=== PATIENT | male | born 1965 | race Caucasian/White ===

== ENCOUNTER 2020-08-23 11:39 | Inpatient (IN) | payer OTHER ==
[2020-08-23 13:00] LABS: Protime INR 1.4
[2020-08-23 13:03] LABS: Basophils % 0.6 % (0-1.3); Hematocrit 21.2 % (39.6-49.0); Lymphocytes % 12.6 % (15.3-44.8); RBC Red Blood Cell Count 2.95 M/uL (4.33-5.43)
[2020-08-23 13:14] LABS: ALT/SGPT 81 U/L (12-78); AST/SGOT 47 U/L (15-37); Albumin 3.2 g/dL (3.4-5.0); Alkaline Phosphatase 121 U/L (45-117); BUN Blood Urea Nitrogen 27 mg/dL (7-18); Bicarbonate 15 mmol/L (21-32); Bilirubin Direct 0.2 mg/dL (0-0.2); Bilirubin Total 0.6 mg/dL (0.2-1.0); Magnesium 2.3 mg/dL (1.8-2.4); NT PRO-BNP 23 pg/mL (<125); Potassium 5.2 mmol/L (3.5-5.1); Protein, Total 7.4 g/dL (6.4-8.2); Sodium Level 136 mmol/L (136-145); Troponin (Emerg Dept Use Only) < 0.02 ng/mL (0.0-0.045)
[2020-08-23 13:17] LABS: Glucose Level 888 mg/dL (74-106)
[2020-08-23] MEDS ORDERED: NA CHLORIDE 0.9% 250 ML ONE (13:46)
[2020-08-23 13:50] LABS: Anisocytosis 2+; Blood Morphology Comment NOTED (NOT SEEN); Hypochromasia 2+; Platelet Estimate ADEQ; White Blood Cell Scan OK (OK)
[2020-08-23] MEDS ORDERED: INSULIN -REGULAR HUMAN 50 UNIT/0.5 ML ML ONE (14:47)
[2020-08-23] MEDS ORDERED: NA CHLORIDE 0.9% 1,000 ML ONE ×2 (14:47→22:42)
--- NOTE | 2020-08-23 15:28 | EDPHYS ---
Physician Documentation [facility] Name: Corey Mendenhall Age: 55 yrs Sex: Male : 1965 Arrival Date: 08/23/2020 Time: 11:46 Bed 18 Private MD: ED Physician HPI: 08/23 15:57 This 55 yrs old Male presents to ER via Ambulatory with complaints of tw4 Shortness Of Breath, Dizziness. 15:57 The patient has shortness of breath at rest. Onset: The symptoms/episode began/occurred tw4 2 day(s) ago. Duration: The symptoms are intermittent. The patient's shortness of breath is aggravated by exertion, is alleviated by nothing. Associated signs and symptoms: Pertinent positives: nausea, vomiting. Severity of symptoms: At their worst the symptoms were moderate in the emergency department the symptoms are unchanged. The patient has not experienced similar symptoms in the past. Historical: - Allergies: 12:13 No Known Allergies; aa5 - Home Meds: 12:13 None [Active]; aa5 - PMHx: 12:13 None; aa5 - PSHx: 12:13 Appendectomy; aa5 - Immunization history:: Adult Immunizations unknown. - Social history:: Smoking status: Patient denies any tobacco usage or history of. Patient/guardian denies using alcohol. ROS: 15:57 Constitutional: Negative for fever, chills, and weight loss, Eyes: Negative for injury, tw4 pain, redness, and discharge, Cardiovascular: Negative for chest pain, palpitations, and edema, Abdomen/GI: Negative for abdominal pain, nausea, vomiting, diarrhea, and constipation, Back: Negative for injury and pain, MS/Extremity: Negative for injury and deformity, Skin: Negative for injury, rash, and discoloration, Neuro: Negative for headache, weakness, numbness, tingling, and seizure. 15:57 Respiratory: Positive for shortness of breath. Exam: 15:57 Constitutional: This is a well developed, well nourished patient who is awake, alert, tw4 and in no acute distress. 15:57 Chest/axilla: Normal chest wall appearance and motion. Nontender with no deformity. No lesions are appreciated. Cardiovascular: Regular rate and rhythm with a normal S1 and S2. No gallops, murmurs, or rubs. Normal PMI, no JVD. No pulse deficits. Respiratory: Lungs have equal breath sounds bilaterally, clear to auscultation and percussion. No rales, rhonchi or wheezes noted. No increased work of breathing, no retractions or nasal flaring. Abdomen/GI: Soft, non-tender, with normal bowel sounds. No distension or tympany. No guarding or rebound. No evidence of tenderness throughout. Back: No spinal tenderness. No costovertebral tenderness. Full range of motion. Skin: Warm, dry with normal turgor. Normal color with no rashes, no lesions, and no evidence of cellulitis. MS/ Extremity: Pulses equal, no cyanosis. Neurovascular intact. Full, normal range of motion. Neuro: Awake and alert, GCS 15, oriented to person, place, time, and situation. Cranial nerves II-XII grossly intact. Motor strength 5/5 in all extremities. Sensory grossly intact. Cerebellar exam normal. Normal gait. 15:57 Eyes: Periorbital structures: appear normal, Pupils: no acute changes, equal, round, and reactive to light and accomodation, Extraocular movements: intact throughout, Conjunctiva: pale, Sclera: Vital Signs: 11:50 BP 126 / 42; Pulse 126; Resp 26; Temp 98.4(O); Pulse Ox 100% on R/A; Weight 99.79 kg aa5 (R); Height 6 ft. 2 in. (187.96 cm) (R); Pain 0/10; 14:30 BP 142 / 74; Pulse 125; Resp 17; Pulse Ox 100% ; bp 15:30 BP 131 / 71; Pulse 126; Resp 16; Temp 98.4; Pulse Ox 99% ; bp 16:30 BP 114 / 70; Pulse 109; Resp 17; Temp 98.4; Pulse Ox 96% ; bp 17:30 BP 130 / 64; Pulse 122; Resp 19; Temp 98.4; Pulse Ox 99% ; bp 19:15 BP 130 / 73; Pulse 109; Resp 16; Pulse Ox 99% ; sf 20:00 BP 122 / 74; Pulse 107; Pulse Ox 99% ; sf 21:00 BP 117 / 72; Pulse 104; Resp 16; Pulse Ox 99% ; sf 11:50 Body Mass Index 28.25 (99.79 kg, 187.96 cm) aa5 MDM: 12:09 Patient medically screened. tw4 16:11 Differential diagnosis: Anemia Anxiety Reaction Myocardial Infarction pneumonia, Sepsis tw4 Unstable Angina. Antibiotic administration: Not indicated. Data reviewed: vital signs, nurses notes. Counseling: I had a detailed discussion with the patient and/or guardian regarding: the historical points, exam findings, and any diagnostic results supporting the discharge/admit diagnosis. Physician consultation: Agus Vazquez DO regarding admission, to the telemetry unit. patient's condition, and will see patient in ED. 08/23 12:12 Order name: Basic Metabolic Panel; Complete Time: 14:13 tw4 08/23 12:12 Order name: CBC with Diff; Complete Time: 14:13 tw4 08/23 12:12 Order name: LFT's; Complete Time: 14:13 tw4 08/23 12:12 Order name: Magnesium; Complete Time: 14:13 tw4 08/23 12:12 Order name: NT PRO-BNP; Complete Time: 14:13 tw4 08/23 12:12 Order name: PT-INR; Complete Time: 14:13 tw4 08/23 12:12 Order name: Troponin (emerg Dept Use Only); Complete Time: 14:13 tw4 08/23 12:12 Order name: Type And Screen tw4 08/23 13:38 Order name: Packed RBC Leukored EDMS 08/23 13:50 Order name: CBC Smear Scan; Complete Time: 14:13 EDMS 08/23 14:14 Order name: Acetone, Serum tw4 08/23 14:14 Order name: Acetone Level; Complete Time: 15:05 EDMS 08/23 14:40 Order name: ABO/RH no charge; Complete Time: 15:06 EDMS 08/23 14:41 Order name: COVID-19 : Document "Date of Symptom Onset" if Symptomatic. bp 08/23 15:50 Order name: Glucose bp 08/23 16:01 Order name: Glucose, Ancillary Testing; Complete Time: 17:38 EDMS 08/23 16:31 Order name: SARS-COV-2 RT PCR; Complete Time: 17:38 EDMS 08/23 16:32 Order name: Glucose Level; Complete Time: 17:38 EDMS 08/23 17:43 Order name: BMP bp 08/23 18:39 Order name: Basic Metabolic Panel; Complete Time: 18:58 EDMS 08/23 19:45 Order name: Glucose 08/23 19:56 Order name: Glucose, Ancillary Testing; Complete Time: 20:47 EDMS 08/23 20:24 Order name: Glucose Level; Complete Time: 20:47 EDMS 08/23 21:05 Order name: Glucose, Ancillary Testing EDMS 08/23 22:28 Order name: Glucose, Ancillary Testing EDMS 08/24 00:09 Order name: Glucose, Ancillary Testing; Complete Time: 00:33 EDMS 08/24 01:35 Order name: Glucose, Ancillary Testing EDMS 08/24 02:43 Order name: Glucose, Ancillary Testing EDMS 08/24 03:31 Order name: CBC with Automated Diff EDMS 08/24 03:32 Order name: Hemoglobin A1c EDMS 08/24 03:40 Order name: Procalcitonin EDMS 08/24 03:48 Order name: Glucose, Ancillary Testing EDMS 08/24 04:55 Order name: Glucose, Ancillary Testing EDMS 08/24 05:35 Order name: Comprehensive Metabolic Panel EDMS 08/24 05:35 Order name: T4 Free EDMS 08/24 05:35 Order name: Magnesium EDMS 08/24 05:35 Order name: Thyroid Stimulating Hormone EDMS 08/24 05:35 Order name: Transferrin Sat/Iron Binding EDMS 08/24 05:35 Order name: Ferritin EDMS 08/24 05:35 Order name: Vitamin B12 Level EDMS 08/24 06:00 Order name: Glucose, Ancillary Testing EDMS 08/24 06:53 Order name: Glucose, Ancillary Testing EDMS 08/24 07:47 Order name: Glucose, Ancillary Testing EDMS 08/24 08:36 Order name: Hemoglobin EDMS 08/24 08:36 Order name: Hematocrit EDMS 08/24 09:22 Order name: Glucose, Ancillary Testing EDMS 08/24 15:08 Order name: Glucose, Ancillary Testing EDMS 08/24 15:08 Order name: Glucose, Ancillary Testing EDMS 08/24 15:08 Order name: Glucose, Ancillary Testing EDMS 08/24 15:08 Order name: Glucose, Ancillary Testing EDMS 08/24 15:08 Order name: Glucose, Ancillary Testing EDMS 08/24 18:45 Order name: Hemoglobin EDMS 08/24 18:45 Order name: Hematocrit EDMS 08/24 21:53 Order name: Basic Metabolic Panel EDMS 08/24 22:49 Order name: Glucose, Ancillary Testing EDKS 08/24 22:49 Order name: Glucose, Ancillary Testing EDKS 08/24 22:50 Order name: Glucose, Ancillary Testing EDKS 08/25 00:07 Order name: Glucose, Ancillary Testing EDKS 08/25 03:02 Order name: Blood Culture EDKS 08/25 03:25 Order name: Glucose, Ancillary Testing EDKS 08/25 06:14 Order name: CBC with Automated Diff [facility] 08/23 12:12 Order name: EKG; Complete Time: 12:13 tw4 08/23 12:12 Order name: Cardiac monitoring; Complete Time: 14:40 tw4 08/23 12:12 Order name: EKG - Nurse/Tech; Complete Time: 14:40 tw4 08/23 12:12 Order name: IV Saline Lock; Complete Time: 12:42 tw4 08/23 12:12 Order name: Labs collected and sent; Complete Time: 12:42 [facility] 08/23 12:12 Order name: O2 Per Protocol; Complete Time: 12:24 [facility] 08/23 12:12 Order name: O2 Sat Monitoring; Complete Time: 12:24 tw4 08/23 13:07 Order name: Transfuse; Complete Time: 17:34 tw4 08/23 13:42 Order name: Labs - recollect needed: recollect cbc tube; Complete Time: 14:24 08/23 20:45 Order name: Misc. Order: OK for ice chips till midnight, NPO after midnight; Complete la1 Time: 20:57 08/24 07:51 Order name: RAD [facility] 08/25 06:17 Order name: Comprehensive Metabolic Panel ED[facility] 08/25 06:17 Order name: Magnesium [facility] 08/25 07:16 Order name: CBC Smear Scan [facility] 08/25 08:05 Order name: RAD [facility] 08/25 08:15 Order name: Glucose, Ancillary Testing ED[facility] 08/25 08:15 Order name: Glucose, Ancillary Testing ED[facility] 08/25 08:50 Order name: Glucose, Ancillary Testing ED[facility] 08/25 12:36 Order name: Glucose, Ancillary Testing ED[facility] 08/25 12:56 Order name: Hemoglobin ED[facility] 08/25 12:56 Order name: Hematocrit EDKS Administered Medications: 14:30 Drug: Insulin Regular Human 10 units {Co-Signature: snow (Jolly Daly RN).} Route: bp IVP; Site: right forearm; 16:12 Follow up: Response: No adverse reaction bp 14:30 Drug: NS 0.9% 1000 ml Route: IV; Rate: 1 bolus; Site: right forearm; bp 16:12 Follow up: IV Status: Completed infusion; IV Intake: 1000ml bp 15:30 Drug: Octreotide 50 mcg Route: IV; Rate: calculated rate; Site: right forearm; bp 16:12 Follow up: IV Status: Completed infusion bp 15:30 Drug: ProTONIX 40 mg Route: IVP; Site: right forearm; bp 16:12 Follow up: Response: No adverse reaction bp 17:00 Drug: Octreotide Infusion (50 mcg/hr) - (Octreotide 500 mcg, NS 0.9% 500 ml) Route: IV; bp Rate: 50 ml/hr; Site: right antecubital; 17:00 Drug: ProTONIX 8 mg/hr Route: IV; Rate: 25 ml/hr; Site: right antecubital; bp 18:00 Drug: NS 0.9% (30 ml/kg) 30 ml/kg Route: IV; Rate: bolus; Site: right forearm; bp 21:54 Follow up: IV Status: Completed infusion; IV Intake: 2000ml sf 18:30 Drug: Insulin Drip - (Insulin Regular Human 100 units, NS 0.9% 100 ml) {Co-Signature: bp willis (Arnie Hooper RN).} Route: IV; Rate: calculated rate; Site: right wrist; Disposition: 08/23/20 15:27 Hospitalization ordered by Agus Vazquez for Inpatient Admission. Preliminary diagnosis is Diabetes mellitus due to underlying condition with hyperosmolarity without nonketotic hyperglycemic-hyperosmolar coma (NKHHC). - Bed requested for [facility] ER HOLD. - Status is Inpatient Admission. ph - Condition is Stable. - Problem is new. - Symptoms have improved. Signatures: Dispatcher [employer] EDMS Alondra Ricks Diana RN Mariana Amaral RN RN iw Calderon, Audri, RN RN aa5 Vimal Ayala, SENIOR NET WEB DEVELOPER-C SENIOR NET WEB DEVELOPER-Cla1 Beatriz Sung RN RN ph Peltier, Brian, RN RN bp Wadley Hemant, MD MD tw4 Arnie Hooper RN, RN, RN sf Corrections: (The following items were deleted from the chart) 15:09 14:41 CORONAVIRUS ordered. EDMS EDMS 19:13 15:27 Hospitalization Ordered by Agus Vazquez DO for Inpatient Admission. Preliminary dw diagnosis is Diabetes mellitus due to underlying condition with hyperosmolarity without nonketotic hyperglycemic-hyperosmolar coma (NKHHC). Bed requested for Telemetry/MedSurg (Inpatient). Status is Inpatient Admission. Condition is Stable. Problem is new. Symptoms have improved. tw4 08/24 16:56 08/23 19:13 08/23/2020 15:27 Hospitalization Ordered by Agus Vazquez DO for Inpatient bd Admission. Preliminary diagnosis is Diabetes mellitus due to underlying condition with hyperosmolarity without nonketotic hyperglycemic-hyperosmolar coma (NKHHC). Bed requested for [facility] ER HOLD. Status is Inpatient Admission. Condition is Stable. Problem is new. Symptoms have improved. dw 08/24 18:04 16:56 08/23/2020 15:27 Hospitalization Ordered by Agus Vazquez DO for Inpatient bp Admission. Preliminary diagnosis is Diabetes mellitus due to underlying condition with hyperosmolarity without nonketotic hyperglycemic-hyperosmolar coma (NKHHC). Bed requested for Telemetry/MedSurg (Inpatient). Status is Inpatient Admission. Condition is Stable. Problem is new. Symptoms have improved. bd 18:43 18:04 08/23/2020 15:27 Hospitalization Ordered by Agus Vazquez DO for Inpatient iw Admission. Preliminary diagnosis is Diabetes mellitus due to underlying condition with hyperosmolarity without nonketotic hyperglycemic-hyperosmolar coma (NKHHC). Bed requested for Telemetry/MedSurg (Inpatient). Status is Inpatient Admission. Condition is Stable. Problem is new. Symptoms have improved. bp 19:38 18:43 08/23/2020 15:27 Hospitalization Ordered by Agus Vazquez DO for Inpatient dw Admission. Preliminary diagnosis is Diabetes mellitus due to underlying condition with hyperosmolarity without nonketotic hyperglycemic-hyperosmolar coma (NKHHC). Bed requested for Intensive Care Unit. Status is Inpatient Admission. Condition is Stable. Problem is new. Symptoms have improved. iw 08/25 16:59 08/24 19:38 08/23/2020 15:27 Hospitalization Ordered by Agus Vazquez DO for Inpatient Admission. Preliminary diagnosis is Diabetes mellitus due to underlying condition with hyperosmolarity without nonketotic hyperglycemic-hyperosmolar coma (NKHHC). Bed requested for [facility] ER HOLD. Status is Inpatient Admission. Condition is Stable. Problem is new. Symptoms have improved. dw
--- NOTE | 2020-08-23 15:28 | ER ---
Nurse's Notes [facility] Name: Corey Mendenhall Age: 55 yrs Sex: Male : 1965 Arrival Date: 08/23/2020 Time: 11:46 Bed 18 Private MD: Diagnosis: Diabetes mellitus due to underlying condition with hyperosmolarity without nonketotic hyperglycemic-hyperosmolar coma (NKHHC) Presentation: 08/23 11:50 Chief complaint: Patient states: SOB, generalized weakness, and dizziness that began aa5 Sunday. Skin is pale. Pt reports vomiting blood and black stools. 11:50 Onset of symptoms was August 2019. aa5 11:50 Acuity: HUBERT 2 aa5 11:50 Method Of Arrival: Ambulatory aa5 11:50 Coronavirus screen: The client reports previous COVID testing was negative. Ebola aa5 Screen: Patient negative for fever greater than or equal to 101.5 degrees Fahrenheit, and additional compatible Ebola Virus Disease symptoms. Initial Sepsis Screen: Does the patient meet any 2 criteria? RR > 20 per min. HR > 90 bpm. Does the patient have a suspected source of infection? No. Patient's initial sepsis screen is negative. Risk Assessment: Do you want to hurt yourself or someone else? Patient reports no desire to harm self or others. Triage Assessment: 12:00 General: Appears distressed, uncomfortable, Behavior is calm, cooperative, appropriate bp for age. Pain: Denies pain. EENT: No deficits noted. Neuro: Level of Consciousness is awake, alert, obeys commands, Oriented to Appropriate for age. Cardiovascular: Rhythm is sinus tachycardia. Respiratory: Reports shortness of breath Onset: The symptoms/episode began/occurred at an unknown time. the patient has mild shortness of breath. GI: Reports bloody stool, vomiting. : No signs and/or symptoms were reported regarding the genitourinary system. Derm: Skin is pale. Musculoskeletal: No deficits noted. Historical: - Allergies: 12:13 No Known Allergies; aa5 - Home Meds: 12:13 None [Active]; aa5 - PMHx: 12:13 None; aa5 - PSHx: 12:13 Appendectomy; aa5 - Immunization history:: Adult Immunizations unknown. - Social history:: Smoking status: Patient denies any tobacco usage or history of. Patient/guardian denies using alcohol. Screenin:22 Abuse screen: Denies threats or abuse. Denies injuries from another. Nutritional bp screening: No deficits noted. Tuberculosis screening: No symptoms or risk factors identified. Fall Risk None identified. Assessment: 12:00 General: SEE TRIAGE NOTE. bp 13:30 Reassessment: No changes from previously documented assessment. Patient and/or family bp updated on plan of care and expected duration. Pain level reassessed. CONSENT FOR TRANSFUSION SIGNED AND WITNESSED. TRANSFUSION ORDER FAXED TO BLOOD BANK. Cardiovascular: Rhythm is sinus tachycardia. Respiratory: Airway is patent Respiratory effort is even, unlabored, Breath sounds are coarse bilaterally. 14:30 Reassessment: No changes from previously documented assessment. Patient and/or family bp updated on plan of care and expected duration. Pain level reassessed. 15:30 Reassessment: No changes from previously documented assessment. Patient and/or family bp updated on plan of care and expected duration. Pain level reassessed. 1ST UNIT PRBC STARTED. 16:00 Reassessment: Patient appears in no apparent distress at this time. PRBC INFUSING. bp 17:00 Reassessment: Patient appears in no apparent distress at this time. PRBC INFUSING. bp 18:00 Reassessment: No changes from previously documented assessment. Patient and/or family bp updated on plan of care and expected duration. Pain level reassessed. 1ST PRBC COMPLETED. 2ND UNIT REQUESTED. 21:51 Reassessment: Patient appears in no apparent distress at this time. No changes from sf previously documented assessment. Patient and/or family updated on plan of care and expected duration. Pain level reassessed. Second unit of blood complete, no reactions noted, vitals stable. Vital Signs: 11:50 BP 126 / 42; Pulse 126; Resp 26; Temp 98.4(O); Pulse Ox 100% on R/A; Weight 99.79 kg aa5 (R); Height 6 ft. 2 in. (187.96 cm) (R); Pain 0/10; 14:30 BP 142 / 74; Pulse 125; Resp 17; Pulse Ox 100% ; bp 15:30 BP 131 / 71; Pulse 126; Resp 16; Temp 98.4; Pulse Ox 99% ; bp 16:30 BP 114 / 70; Pulse 109; Resp 17; Temp 98.4; Pulse Ox 96% ; bp 17:30 BP 130 / 64; Pulse 122; Resp 19; Temp 98.4; Pulse Ox 99% ; bp 19:15 BP 130 / 73; Pulse 109; Resp 16; Pulse Ox 99% ; sf 20:00 BP 122 / 74; Pulse 107; Pulse Ox 99% ; sf 21:00 BP 117 / 72; Pulse 104; Resp 16; Pulse Ox 99% ; sf 11:50 Body Mass Index 28.25 (99.79 kg, 187.96 cm) aa5 ED Course: 11:46 Patient arrived in ED. mr 11:50 Arm band placed on Patient placed in an exam room, on a stretcher. aa5 12:00 Patient has correct armband on for positive identification. Bed in low position. Call bp light in reach. Side rails up X2. 12:04 Wesley Barry RN is Primary Nurse. bp 12:09 Hemant Kramer MD is Attending Physician. tw4 12:12 Triage completed. aa5 12:40 Inserted saline lock: 20 gauge in right forearm, using aseptic technique. Blood bp collected. 15:25 Agus Vazquez DO is Hospitalizing Provider. tw4 15:30 Inserted saline lock: 20 gauge in right forearm, using aseptic technique. Blood bp collected. 18:46 BMP Sent. bp 02 18:03 No provider procedures requiring assistance completed. Patient admitted, IV remains in bp place. 18:38 Attending Physician role handed off by Hemant Kramer MD bp 08/25 04:29 Primary Nurse role handed off by Wesley Barry RN tt3 Administered Medications: 08/23 14:30 Drug: Insulin Regular Human 10 units {Co-Signature: snow (Jolly Daly RN).} Route: bp IVP; Site: right forearm; 16:12 Follow up: Response: No adverse reaction bp 14:30 Drug: NS 0.9% 1000 ml Route: IV; Rate: 1 bolus; Site: right forearm; bp 16:12 Follow up: IV Status: Completed infusion; IV Intake: 1000ml bp 15:30 Drug: Octreotide 50 mcg Route: IV; Rate: calculated rate; Site: right forearm; bp 16:12 Follow up: IV Status: Completed infusion bp 15:30 Drug: ProTONIX 40 mg Route: IVP; Site: right forearm; bp 16:12 Follow up: Response: No adverse reaction bp 17:00 Drug: Octreotide Infusion (50 mcg/hr) - (Octreotide 500 mcg, NS 0.9% 500 ml) Route: IV; bp Rate: 50 ml/hr; Site: right antecubital; 17:00 Drug: ProTONIX 8 mg/hr Route: IV; Rate: 25 ml/hr; Site: right antecubital; bp 18:00 Drug: NS 0.9% (30 ml/kg) 30 ml/kg Route: IV; Rate: bolus; Site: right forearm; bp 21:54 Follow up: IV Status: Completed infusion; IV Intake: 2000ml sf 18:30 Drug: Insulin Drip - (Insulin Regular Human 100 units, NS 0.9% 100 ml) {Co-Signature: bp willis (Arnie Hooper RN).} Route: IV; Rate: calculated rate; Site: right wrist; Intake: 16:12 IV: 1000ml; Total: 1000ml. bp 21:54 IV: 2000ml; Total: 3000ml. sf Outcome: 15:27 Decision to Hospitalize by Provider. 08/24 18:03 Admitted to OR accompanied by nurse, via stretcher, room 203, Report called to JEFF stern RN Condition: stable Instructed on the need for admit. 18:04 Patient left the ED. bp 08/25 16:59 Patient left the ED. ph Signatures: Marj Sanabria mr HancockMariia, RN RN aa5 Beatriz Sung RN RN Wesley Barry RN RN Hemant Kramer MD MD tw4 Romulo Solomon 3 Arnie Hooper RN RN sf Jolly Daly RN zanh Hooper RN sf Corrections: (The following items were deleted from the chart) 08/23 12:12 11:50 Chief complaint: Patient states: SOB, generalized weakness, and dizziness that aa5 began Sunday. aa5
--- NOTE | 2020-08-23 15:47 | P.HP ---
Certification for Inpatient Patient admitted to: Inpatient With expected LOS: >2 Midnights Patient will require the following post-hospital care: None Practitioner: I am a practitioner with admitting privileges, knowledge of patient current condition, hospital course, and medical plan of care. Services: Services provided to patient in accordance with Admission requirements found in Title 42 Section 412.3 of the Code of Federal Regulations Patient History Date of Service: 08/23/20 Primary Care Provider: none Reason for admission: Hematemesis, melena History of Present Illness: 55-year-old male with no prior medical problems presented with 1 episode of hematemesis yesterday and melena for several days. Patient is a traveling ultrasound medical assistant internal medicine. He was recently in [place] working last week. He start to notice increased fatigue. Over the past several days he has been having some mild mom obtain. Because of the fatigue the patient took some aspirin and ibuprofen. He also reports increase polyuria, polydipsia. His symptoms did not improve. He threw up a blood clot yesterday. Due to the worsening melena and diarrhea he also took some Pepto-Bismol. He came to the ER for further evaluation. In the ER patient was evaluated. Patient was tachycardic. Patient appeared pale. Hemoglobin 5.9, white count 15. Platelet count 263. INR 1.4. Sodium 136, potassium 5.2, chloride 98, bicarb 15. BN of 27, creatinine 2.13 with a GFR 32. Glucose 888. AST 47, ALT 81, alk-phos 121. Patient was given IV fluids. Blood has been ordered to be given. Patient to be admitted for further evaluation and treatment. When I saw the patient ER, patient appeared stable. Patient reports no prior history of ulcers, bleeding. No mention of family history of GI related problems. Home medications list reviewed: Yes - Past Medical/Surgical History Past Medical History: Patient denies medical history -: Appendectomy Psychosocial/ Personal History: Patient works as a traveling medical veterinary assistant technician. - Family History Father -: Heart disease Brother -: Heart disease Sister -: Heart disease - Social History Smoking Status: Never smoker Alcohol use: No CD- Drugs: No Caffeine use: Yes Place of Residence: Home Review of Systems General: Weakness, Malaise, As per HPI Eyes: Unremarkable ENT: Unremarkable Respiratory: Unremarkable Cardiovascular: As per HPI Gastrointestinal: Nausea, Vomiting, Melena, As per HPI Genitourinary: Frequency, Urgency, As per HPI Musculoskeletal: Unremarkable Integumentary: Unremarkable Neurological: Unremarkable Lymphatics: Unremarkable Physical Examination - Physical Exam General: Alert, In no apparent distress, Oriented x3, Cooperative, Other (Patient appears pale) HEENT: Atraumatic, Other (Dry mucous membranes) Neck: Supple Respiratory: Clear to auscultation bilaterally, Normal air movement Cardiovascular: Abnormal pulses (Sinus tachycardia) Gastrointestinal: Normal bowel sounds, No ascites, No tenderness, No masses, No rebound, No guarding Musculoskeletal: No erythema, No tenderness, No warmth Integumentary: No tenderness/swelling, No erythema, No warmth, No cyanosis Neurological: Normal speech, Normal strength at 5/5 x4 extr, Normal tone, Normal affect - Studies Laboratory Data (last 24 hrs) 08/23/20 12:40: PT 16.1 H, INR 1.40 08/23/20 12:40: WBC 15.50 H, Hgb 5.9 L*, Hct 21.2 L, Plt Count 263 08/23/20 12:40: Sodium 136, Potassium 5.2 H, BUN 27 H, Creatinine 2.13 H, Glucose 888 H*, Magnesium 2.3, Total Bilirubin 0.6, AST 47 H, ALT 81 H, Alkaline Phosphatase 121 H Assessment and Plan - Plan Impression: Hematemesis, melena, fatigue with acute anemia suspect upper GI bleed Acute renal injury likely related to above Hyperosmolar nonketotic hyperglycemia suspect underlying diabetes mellitus type 2 Plan: Hematemesis, melena, fatigue with acute anemia suspect upper GI bleed: Patient will be admitted to ICU. Will continue with aggressive IV fluids. Patient to get 2 units of packed red blood cells soon. Will monitor hemoglobin closely. Maintain hemoglobin above 7.0. Will keep the patient NPO. Case discussed at length with GI. Continue Protonix IV drip. Will start IV Rocephin. GI plans for EGD tomorrow morning once hemoglobin is more stabilize. Will continue monitor this closely. Will obtain blood cultures, urine culture. Will check chest x-ray. Will continue to monitor hemoglobin closely. Await further recommendations from GI. Acute renal injury likely related to above: Continue aggressive IV fluids. Will continue monitor this closely. Hyperosmolar nonketotic hyperglycemia suspect underlying diabetes mellitus type 2: Recheck lab-BMP. Will check A1c. Will continue with IV fluids. Will provide aggressive sliding scale. No need for insulin drip at this time. Will continue monitor closely. Discharge Plan: Home Plan to discharge in: Greater than 2 days - Advance Directives Does patient have a Living Will: No Does patient have a Durable POA for Healthcare: No - Code Status/Comfort Care Code Status Assessed: Yes (Patient is full code) Time Spent Managing Pts Care (In Minutes): 60
[2020-08-23] MEDS ORDERED: PANTOPRAZOLE 40 MG INJ ONE (16:22)
[2020-08-23] MEDS ORDERED: OCTREOTIDE ACETATE 100 MCG/ML ONE (16:22)
[2020-08-23] MEDS ORDERED: GLUCAGON 1 MG/VIAL IM PRN (18:03)
[2020-08-23] MEDS ORDERED: D50W 25 GM/50 ML VIAL IV PRN (18:07)
[2020-08-23] MEDS ORDERED: INSULIN -REGULAR HUMAN 100 UNIT in NA CHLORIDE 0.9% 100 ML IV SCH (18:15)
[2020-08-23] MEDS ORDERED: NA CHLORIDE 0.9% 2,000 ML ONE (18:19)
[2020-08-23 18:34] LABS: Potassium 4.6 mmol/L (3.5-5.1)
[2020-08-23] MEDS: OCTREOTIDE 500 MCG in NA CHLORIDE 0.9% 500 ML IV SCH (19:00)
[2020-08-23] MEDS: PANTOPRAZOLE INJ 80 MG in NA CHLORIDE 0.9% 250 ML IV SCH (19:00)
[2020-08-23] MEDS: CEFTRIAXONE/SWI 1gm 1 GM/10 ML SYR IVP SCH (22:30)
[2020-08-23] MEDS: NA CHLORIDE 0.9% 1,000 ML IV SCH (22:35)
[2020-08-23] MEDS ORDERED: CEFTRIAXONE/SWI 1gm 1 GM/10 ML SYR ONE (22:42)
[2020-08-24] MEDS ORDERED: ACETAMINOPHEN 500 MG TAB ONE (01:35)
[2020-08-24] MEDS: NA CHLORIDE 0.9% 1,000 ML IV SCH ×3 (02:00→22:00)
[2020-08-24] MEDS ORDERED: ACETAMINOPHEN 650MG/RECT SUPP PR PRN (02:26)
[2020-08-24] MEDS: INSULIN -REGULAR HUMAN 50 UNIT/0.5 ML ML SQ SCH ×4 (02:26→16:26)
[2020-08-24] MEDS ORDERED: ONDANSETRON 4 MG/2 ML VIAL IV PRN (02:26)
[2020-08-24] MEDS: OCTREOTIDE 500 MCG in NA CHLORIDE 0.9% 500 ML IV SCH ×2 (03:00→13:00)
[2020-08-24] MEDS: PANTOPRAZOLE INJ 80 MG in NA CHLORIDE 0.9% 250 ML IV SCH ×2 (03:00→13:00)
[2020-08-24 03:28] LABS: Absolute Lymphocytes (CBC) 3.1 K/uL (0.7-4.9); Basophils % 0.6 % (0-1.3); Lymphocytes % 26.5 % (15.3-44.8); MPV 8.6 fL (7.6-11.3)
[2020-08-24 03:31] VITALS: BMI 28.2
[2020-08-24] MEDS ORDERED: NA CHLORIDE 0.9% 250 ML IV SCH (04:00)
[2020-08-24] MEDS ORDERED: NA CHLORIDE 0.9% 500 ML ONE ×2 (04:03→17:12)
[2020-08-24] MEDS ORDERED: PANTOPRAZOLE 40 MG INJ ONE (04:03)
[2020-08-24] MEDS ORDERED: NA CHLORIDE 0.9% 250 ML ONE ×3 (04:03→14:06)
[2020-08-24] MEDS ORDERED: OCTREOTIDE ACETATE 100 MCG/ML ONE (04:05)
[2020-08-24 05:32] LABS: ALT/SGPT 65 U/L (12-78); AST/SGOT 45 U/L (15-37); Albumin 2.6 g/dL (3.4-5.0); Alkaline Phosphatase 83 U/L (45-117); BUN Blood Urea Nitrogen 19 mg/dL (7-18); Bicarbonate 25 mmol/L (21-32); Bilirubin Total 0.4 mg/dL (0.2-1.0); Ferritin 4.1 ng/mL (26-388); Glucose Level 204 mg/dL (74-106); Magnesium 2.1 mg/dL (1.8-2.4); Potassium 3.6 mmol/L (3.5-5.1); Protein, Total 5.8 g/dL (6.4-8.2); Sodium Level 147 mmol/L (136-145); Transferrin 296 mg/dL (200-360)
[2020-08-24 05:34] LABS: Iron < 5.0 ug/dL (65-175)
[2020-08-24] MEDS: D5 0.45 NS 1,000 ML IV SCH ×2 (07:00→13:00)
--- NOTE | 2020-08-24 07:51 | RAD REPORT ---
EXAM DESCRIPTION: RAD - Chest Single View - 08/24/2020 3:36 am CLINICAL HISTORY: Upper GI Bleed, Fatigue, SOB COMPARISON: None TECHNIQUE: AP portable chest image was obtained 08/24/2020 3:36 am . FINDINGS: Lung volumes are low. No peripheral mass or consolidation. Retrocardiac left base assessme nt is limited. Heart size within normal limits. Central vascular engorgement is seen probably the aff ects of low lung volumes. No measurable pleural effusion and no pneumothorax. No acute bony abnormali ty seen. No acute aortic findings suspected. IMPRESSION: No focal infiltrates seen though retrocardiac left base assessment is limited. Shallow inspiration accentuates heart, vasculature and lung markings potentially masking early edema, failure or volume overload.
[2020-08-24] MEDS ORDERED: D5 0.45 NS 1,000 ML IV ONE (08:09)
[2020-08-24 08:25] LABS: Hematocrit 22.5 % (39.6-49.0)
[2020-08-24] MEDS: CEFTRIAXONE/SWI 1gm 1 GM/10 ML SYR IVP SCH (09:00)
--- NOTE | 2020-08-24 09:39 | P.PN ---
Subjective Date of Service: 08/24/20 Primary Care Provider: none Chief Complaint: Hematemesis, melena Subjective: Improving Physical Examination - Vital Signs Temperature: 97.7 F Blood Pressure: 115/70 Pulse: 87 Respirations: 14 Pulse Ox (%): 98 - Studies Laboratory Data (last 24 hrs) 08/23/20 12:40: PT 16.1 H, INR 1.40 08/23/20 12:40: WBC 15.50 H, Hgb 5.9 L*, Hct 21.2 L, Plt Count 263 08/23/20 12:40: Sodium 136, Potassium 5.2 H, BUN 27 H, Creatinine 2.13 H, Glucose 888 H*, Magnesium 2.3, Total Bilirubin 0.6, AST 47 H, ALT 81 H, Alkaline Phosphatase 121 H Assessment & Plan Discharge Plan: Home Plan to discharge in: Greater than 2 days Physician Review Additional Text: Physical exam: Patient alert, cooperative. Heart: Regular rate rhythm Lungs: Clear to auscultation Abdomen: Soft nontender nondistended Extremities: Good range of motion to the upper lower extremities. Impression: Hematemesis, melena, fatigue with acute anemia suspect upper GI bleed Acute renal injury likely related to above Hyperosmolar nonketotic hyperglycemia suspect underlying diabetes mellitus type 2 Plan: Hematemesis, melena, fatigue with acute anemia suspect upper GI bleed: Patient had received 3 units of packed red blood cells. Hemoglobin 7.1. Will transfuse another unit of blood. Case discussed with GI. GI plans for EGD today. Patient also had DKA. DKA resolved and stable. Patient remains NPO in preparation for EGD. Will transition to oral medication and supplementation the EGD. Await further discussion with GI and findings. Acute renal injury likely related to above: Continue aggressive IV fluids. Will continue monitor this closely. Diabetic ketoacidosis underlying diabetes mellitus type 2: DKA resolved. A1c 10.1. Continue with current regimen at this time until patient is able to take oral intake. Will transition to Lantus after EGD. Time Spent Managing Pts Care (In Minutes): 55
--- NOTE | 2020-08-24 10:01 | EKG ---
Test Date: 2020-08-23 Test Time: 13:03:17 Linseed Cake Trimmer: EARL MEASUREMENT RESULTS: Intervals: Rate: 117 NH: 144 QRSD: 80 QT: 314 QTc: 438 Story: P: 72 NH: 144 QRS: 41 T: 40 INTERPRETIVE STATEMENTS: Sinus tachycardia Otherwise normal ECG No previous ECG available for comparison Electronically Signed On 08-24-20 09:59:35 MARIONETTE PERFORMER by Carlos Mack
[2020-08-24] MEDS ORDERED: CEFTRIAXONE/SWI 1gm 1 GM/10 ML SYR ONE (10:11)
[2020-08-24] MEDS ORDERED: NA CHLORIDE 0.9% 50 ML ONE (10:11)
[2020-08-24] MEDS ORDERED: LORazepam 2 MG/ML VIAL ONE ×2 (11:46→15:06)
[2020-08-24] MEDS: LORazepam 2 MG/ML VIAL IV SCH ×3 (12:00→21:00)
[2020-08-24] MEDS ORDERED: propofoL 200 MG/20 ML VIAL IV ONE (17:21)
[2020-08-24] MEDS ORDERED: EPINEPHRINE/PF 1 MG/ML AMP ONE (17:32)
[2020-08-24 18:43] LABS: Hematocrit 27.7 % (39.6-49.0)
[2020-08-24] MEDS ORDERED: INSULIN GLARGINE 100 UNITS/ML SQ SCH (21:25)
[2020-08-24] MEDS ORDERED: INSULIN GLARGINE 100 UNITS/ML SQ ONE (21:32)
[2020-08-24 21:53] LABS: BUN Blood Urea Nitrogen 13 mg/dL (7-18); Bicarbonate 24 mmol/L (21-32); Glucose Level 240 mg/dL (74-106); Sodium Level 145 mmol/L (136-145)
--- NOTE | 2020-08-24 22:36 | ENDO RPT ---
[address], [address] EGD PROCEDURE REPORT EXAM DATE: 08/24/2020 PATIENT NAME: Corey Mendenhall MR#: [id number] BIRTHDATE: 1965 ATTENDING: Andres Loaiza Dr STATUS: inpatient [employer] OPERATOR: Kayleigh Carcamo RN INDICATIONS: The patient is a 55 yr old Male here for an EGD due to anemia, hematemesis, and melenic bleeding PROCEDURE PERFORMED: EGD with biopsy, EGD for control of bleeding, and EGD with sclerotherapy MEDICATIONS: Per Anesthesia. TOPICAL ANESTHETIC: none CONSENT: The patient understands the risks and benefits of the procedure and understands that these risks include, but are not limited to: sedation, allergic reaction, infection, perforation and/or bleeding. Alternative means of evaluation and treatment include, among others: physical exam, x-rays, and/or surgical intervention. The patient elects to proceed with this endoscopic procedure. DESCRIPTION OF PROCEDURE: During intra-op preparation period all mechanical medical equipment was checked for proper function. Hand hygiene and appropriate measures for infection prevention was taken. Procedure, possible complications, and alternatives including but not limited to the possibility of bleeding, perforation, tear, infection, sepsis, need for surgery, need for blood transfusion, and anesthesia related complications were explained to the patient. After the risks, benefits and alternatives of the procedure were thoroughly explained, Informed consent was verified, confirmed and timeout was successfully executed by the treatment team. The patient was placed in the left lateral position. The patient was anesthetized with topical anesthesia. Through the anesthetized oropharyngeal area, the scope was passed without any difficulty. The [id number] ([id number]) endoscope was introduced through the mouth and advanced to the third portion of the duodenum. Retroflexed views revealed a moderate sized hiatal hernia. The gastroscope was then slowly withdrawn and removed. LA Class B esophagitis was found in the lower esophagus. Probable Ann-Domínguez tear with adherent erythematous clot in the lower esophagus, s/p injection with 3 cc Epinephrine (1:10,000) with control of bleeding. A moderate sized hiatal hernia was found. Mild gastritis was found in the antrum. Multiple biopsies were obtained and sent to pathology. ADVERSE EVENTS: There were no complications. IMPRESSIONS: 1. LA Class B esophagitis in the lower esophagus 2. Probable Ann-Domínguez tear in the lower esophagus with adherent erythematous clot, s/p injection with 3 cc Epinephrine (1:10,000) with control of bleeding 3. Moderate sized hiatal hernia 4. Mild gastritis in the antrum, s/p biopsies RECOMMENDATIONS: 1. await biopsy results 2. acid suppression therapy REPEAT EXAM: Andres Loaiza Dr eSigned: Andres Loaiza Dr 08/24/2020 5:33 PM cc: Agus Vazquez CPT CODES: ICD9 CODES: PATIENT NAME: Corey Mendenhall MR#: [id number]
[2020-08-24 23:07] VITALS: O2SAT 97
[2020-08-25] MEDS ORDERED: LORazepam 2 MG/ML VIAL ONE (00:01)
[2020-08-25] MEDS ORDERED: NA CHLORIDE 0.9% 1,000 ML ONE ×2 (00:01→13:31)
[2020-08-25] MEDS ORDERED: INSULIN -REGULAR HUMAN 50 UNIT/0.5 ML ML ONE ×3 (01:01→13:52)
[2020-08-25] MEDS ORDERED: PANTOPRAZOLE 40 MG INJ ONE ×2 (03:06→09:16)
[2020-08-25] MEDS ORDERED: NA CHLORIDE 0.9% 250 ML ONE (03:06)
[2020-08-25 05:54] LABS: Absolute Lymphocytes (CBC) 2.3 K/uL (0.7-4.9); Basophils % 0.4 % (0-1.3); Hematocrit 23.6 % (39.6-49.0); Lymphocytes % 28.7 % (15.3-44.8); MPV 8.4 fL (7.6-11.3); RBC Red Blood Cell Count 3.21 M/uL (4.33-5.43)
[2020-08-25 06:15] LABS: Albumin 2.3 g/dL (3.4-5.0); Bilirubin Total 0.7 mg/dL (0.2-1.0); Magnesium 2.1 mg/dL (1.8-2.4); Potassium 4.1 mmol/L (3.5-5.1); Protein, Total 5.4 g/dL (6.4-8.2)
[2020-08-25] MEDS ORDERED: SODIUM CHLORIDE 0.9% 10ML INJ IV PRN (07:08)
[2020-08-25 07:15] LABS: Anisocytosis 3+; Blood Morphology Comment NOTED (NOT SEEN); Hypochromasia 1+; Platelet Estimate DECR; White Blood Cell Scan OK (OK)
[2020-08-25] MEDS ORDERED: INSULIN -REGULAR HUMAN 50 UNIT/0.5 ML ML SQ SCH (07:30)
[2020-08-25] MEDS: INSULIN -REGULAR HUMAN 50 UNIT/0.5 ML ML SQ SCH ×2 (07:30→11:30)
[2020-08-25] MEDS: NA CHLORIDE 0.9% 1,000 ML IV SCH (08:00)
--- NOTE | 2020-08-25 08:04 | RAD REPORT ---
EXAM DESCRIPTION: Elijah Single View08/25/2020 6:47 am CLINICAL HISTORY: Shortness of breath COMPARISON: none FINDINGS: Interstitial pattern is mildly prominent the without significant change from the prior ex am. I suspect most if not all of this is chronic. Heart is normal size. Upper lobe vessels are prominent which may indicate pulmonary venous hypertensi on If patient's symptoms persist PA and lateral chest series would be recommended
[2020-08-25] MEDS ORDERED: PANTOPRAZOLE 40 MG INJ IVP SCH (09:00)
[2020-08-25] MEDS: LORazepam 2 MG/ML VIAL IV SCH ×2 (09:00→14:00)
[2020-08-25] MEDS: CEFTRIAXONE/SWI 1gm 1 GM/10 ML SYR IVP SCH (09:00)
[2020-08-25] MEDS ORDERED: CEFTRIAXONE/SWI 1gm 1 GM/10 ML SYR ONE (09:16)
--- NOTE | 2020-08-25 10:47 | P.CNS ---
Date of Consult: 08/25/20 Consulted to provide an PCP for the patient. He is a pleasant gentlman with no previous history. The patient was feeling hot and like his legs were heavy. Was coughing up tbsp of blood. Came to the ER. Was found to be in DKA. Was started on insulin. His a1c was 10.1. The patient was scoped by Dr. Lane. He had a probably mesfin haseeb tear. Which was injected with epinephrine. So bleeding was controlled. The patients gap has closed. He is anemic at hb of 7.7. However does not require a transfusion. He will be treated in the hospital by Dr. Vazquez. Have given him my office card. Will send him the required documents through his email. Will schedule a follow up appointment in the following week.
[2020-08-25 12:50] LABS: Hematocrit 27.3 % (39.6-49.0)
--- NOTE | 2020-08-25 14:00 | P.DS ---
Admission Date: 08/23/20 Discharge Date: 08/25/20 Primary Care Provider: none Disposition: ROUTINE DISCHARGE Discharge Condition: GOOD Reason for Admission: Hematemesis, melena Consultations: GI-Dr. Loaiza Procedures: COVID: Negative CXR: COMPARISON: none FINDINGS: Interstitial pattern is mildly prominent the without significant change from the prior exam. I suspect most if not all of this is chronic. Heart is normal size. EGD: 1. LA Class B esophagitis in the lower esophagus 2. Probable Ann-Domínguez tear in the lower esophagus with adherent erythematous clot status post injection with 3 cc epinephrine with control of bleeding 3. Moderate size hiatal hernia 4. Mild gastritis in the antrum status post biopsies Recommendation Await biopsy results, acid suppression therapy Medical Problem List: Hematemesis, melena, fatigue with acute anemia secondary to upper GI bleed status post EGD showing LA class B esophagitis in the lower esophagus, probable Ann-Domínguez tear in the lower esophagus status post injection of epinephrine with control of bleeding, moderate size hiatal hernia and mild gastritis in the antrum Acute renal injury likely related to above Diabetic ketoacidosis with underlying diabetes mellitus type 2 Brief History of Present Illness: 55-year-old male with no prior medical problems presented with 1 episode of hematemesis yesterday and melena for several days. 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 He start to notice increased fatigue. Over the past several days he has been having some mild mom obtain. Because of the fatigue the patient took some aspirin and ibuprofen. He also reports increase polyuria, polydipsia. His symptoms did not improve. He threw up a blood clot yesterday. Due to the worsening melena and diarrhea he also took some Pepto-Bismol. He came to the ER for further evaluation. In the ER patient was evaluated. Patient was tachycardic. Patient appeared pale. Hemoglobin 5.9, white count 15. Platelet count 263. INR 1.4. Sodium 136, potassium 5.2, chloride 98, bicarb 15. BN of 27, creatinine 2.13 with a GFR 32. Glucose 888. AST 47, ALT 81, alk-phos 121. Patient was given IV fluids. Blood has been ordered to be given. Patient to be admitted for further evaluation and treatment. When I saw the patient ER, patient appeared stable. Patient reports no prior history of ulcers, bleeding. No mention of family history of GI related problems. Hospital Course: Patient presented with hematemesis, melena, fatigue with acute anemia secondary to upper GI bleed. Patient required multiple transfusions to maintain hemoglobin. Patient was seen and evaluated by GI. GI recommended intervention. Patient had EGD done. EGD showed LA class B esophagitis in the lower esophagus, probable Ann-Domínguez tear in the lower esophagus status post injection of epinephrine with control of bleeding, moderate size hiatal hernia and mild gastritis in the antrum. No further bleeding noted Hemoglobin stable at 8.6. His diet was advanced. Patient tolerating diet at this time. At discharge patient will continue with Protonix 40 mg daily. Will also recommend iron 325 mg twice daily. Recommend follow up with GI in 2-4 weeks to follow up this hospitalization. Patient may continue with a soft diet. Recommend to recheck lab-CBC in 2-4 weeks to monitor his progress. Patient also had diabetic ketoacidosis. Patient likely with underlying diabetes mellitus type 2. Patient required insulin drip with IV fluid hydration. DKA has resolved. Patient was transition to Lantus. Hemoglobin A1c 10.1. At discharge patient will continue with Lantus 10 units subcutaneous daily. Recommend to monitor blood sugars at least twice daily. Recommend to maintain blood sugar less than 140 fasting and less than 200 after meals. May need to increase insulin if blood sugars remain above 200 consistently. Patient may increase by 1-2 units. Further adjustment in medication can be done by his PCP. Patient will establish with Dr. Boyle, who came to visit with the patient. Diabetic education provided. Recommend to recheck A1c in 3 months to monitors progress. Patient also had acute renal injury. This was likely related to dehydration and above. This has resolved. Renal function now back to baseline. Recommend to recheck lab-BMP in 1 week to monitor stability and resolution. Patient had elevation in liver function. Will obtain hepatitis panel prior to discharge. This will need to be followed up by PCP. Vital Signs/Physical Exam: Temp Pulse Resp BP Pulse Ox 97.4 F 81 18 115/75 97 08/25/20 07:00 08/25/20 07:00 08/25/20 07:00 08/25/20 07:00 08/25/20 07:00 General: Alert, In no apparent distress, Oriented x3, Cooperative HEENT: Atraumatic Neck: Supple Respiratory: Clear to auscultation bilaterally, Normal air movement Cardiovascular: Normal pulses, Regular rate/rhythm Gastrointestinal: Normal bowel sounds, Soft and benign, Non-distended, No tenderness, No masses, No rebound, No guarding Musculoskeletal: No erythema, No tenderness, No warmth Integumentary: No tenderness/swelling Neurological: Normal speech, Normal strength at 5/5 x4 extr, Normal tone, Normal affect Laboratory Data at Discharge: WBC 7.90 K/uL (4.3-10.9) D 08/25/20 05:27 Hgb 8.6 g/dL (13.6-17.9) L 08/25/20 12:39 Hct 27.3 % (39.6-49.0) L D 08/25/20 12:39 Plt Count 119 K/uL (152-406) L D 08/25/20 05:27 PT 16.1 SECONDS (9.5-12.5) H 08/23/20 12:40 INR 1.40 08/23/20 12:40 Sodium 143 mmol/L (136-145) 08/25/20 05:27 Potassium 4.1 mmol/L (3.5-5.1) 08/25/20 05:27 BUN 11 mg/dL (7-18) 08/25/20 05:27 Creatinine 0.90 mg/dL (0.55-1.3) 08/25/20 05:27 Glucose 210 mg/dL (74-106) H 08/25/20 05:27 Magnesium 2.1 mg/dL (1.8-2.4) 08/25/20 05:27 Total Bilirubin 0.7 mg/dL (0.2-1.0) 08/25/20 05:27 AST 137 U/L (15-37) H 08/25/20 05:27 ALT 121 U/L (12-78) H 08/25/20 05:27 Alkaline Phosphatase 77 U/L (45-117) 08/25/20 05:27 Home Medications: Ferrous Sulfate [Iron] 325 mg PO BID #60 tablet 08/25/20 Insulin Glargine,Hum.rec.anlog [Lantus Solostar] 10 unit SQ DAILY #1 packet 08/25/20 Pantoprazole [Protonix Tab] 40 mg PO DAILY #30 tab 08/25/20 New Medications: Ferrous Sulfate [Iron] 325 mg PO BID #60 tablet Insulin Glargine,Hum.rec.anlog [Lantus Solostar] 10 unit SQ DAILY #1 packet Pantoprazole [Protonix Tab] 40 mg PO DAILY #30 tab Physician Discharge Instructions: Follow up with PCP in 1 week. Patient presented with hematemesis, melena, fatigue with acute anemia secondary to upper GI bleed. Patient required multiple transfusions to maintain hemoglobin. Patient was seen and evaluated by GI. GI recommended intervention. Patient had EGD done. EGD showed LA class B esophagitis in the lower esophagus, probable Ann-Domínguez tear in the lower esophagus status post injection of epinephrine with control of bleeding, moderate size hiatal hernia and mild gastritis in the antrum. No further bleeding noted Hemoglobin stable at 8.6. His diet was advanced. Patient tolerating diet at this time. At discharge patient will continue with Protonix 40 mg daily. Will also recommend iron 325 mg twice daily. Recommend follow up with GI in 2-4 weeks to follow up this hospitalization. Patient may continue with a soft diet. Recommend to recheck lab-CBC in 2-4 weeks to monitor his progress. Patient also had diabetic ketoacidosis. Patient likely with underlying diabetes mellitus type 2. Patient required insulin drip with IV fluid hydration. DKA has resolved. Patient was transition to Lantus. Hemoglobin A1c 10.1. At discharge patient will continue with Lantus 10 units subcutaneous daily. Recommend to monitor blood sugars at least twice daily. Recommend to maintain blood sugar less than 140 fasting and less than 200 after meals. May need to increase insulin if blood sugars remain above 200 consistently. Patient may increase by 1-2 units. Further adjustment in medication can be done by his PCP. Patient will establish with Dr. Boyle, who came to visit with the patient. Diabetic education provided. Recommend to recheck A1c in 3 months to monitors progress. Patient also had acute renal injury. This was likely related to dehydration and above. This has resolved. Renal function now back to baseline. Recommend to recheck lab-BMP in 1 week to monitor stability and resolution. Patient had elevation in liver function. Will obtain hepatitis panel prior to discharge. This will need to be followed up by PCP. Diet: ADA Activity: Ad justino Followup: NONE,NONE [Primary Care Provider] - Time spent managing pt's care (in minutes): 55
[2020-08-25 18:22] VITALS: BP 117/68; TEMP 97.8
--- NOTE | 2020-08-25 22:41 | P.PN ---
Subjective Date of Service: 08/25/20 Primary Care Provider: none Chief Complaint: Hematemesis, melena Subjective: Improving (No further hematemesis / melena. MW tear s/p therapy and esophagitis / gastritis.) Physical Examination - Vital Signs Temperature: 97.8 F Blood Pressure: 117/68 Pulse: 91 Respirations: 18 Pulse Ox (%): 98 Assessment And Plan - Current Problems (Diagnosis) (1) Hematemesis Status: Acute Comment: Improved. (2) Melena Status: Acute (3) Anemia Status: Acute (4) Ann-Domínguez tear Status: Acute (5) Esophagitis Status: Acute (6) Gastritis Status: Acute - Plan REC: 1) continue PPI therapy 2) outpatient colonoscopy (none in the past) 3) GI clinic f/u Physician Review Additional Text: Physical exam: Patient alert, cooperative. Heart: Regular rate rhythm Lungs: Clear to auscultation Abdomen: Soft nontender nondistended Extremities: Good range of motion to the upper lower extremities. Impression: Hematemesis, melena, fatigue with acute anemia suspect upper GI bleed Acute renal injury likely related to above Hyperosmolar nonketotic hyperglycemia suspect underlying diabetes mellitus type 2 Plan: Hematemesis, melena, fatigue with acute anemia suspect upper GI bleed: Patient had received 3 units of packed red blood cells. Hemoglobin 7.1. Will transfuse another unit of blood. Case discussed with GI. GI plans for EGD today. Patient also had DKA. DKA resolved and stable. Patient remains NPO in preparation for EGD. Will transition to oral medication and supplementation the EGD. Await further discussion with GI and findings. Acute renal injury likely related to above: Continue aggressive IV fluids. Will continue monitor this closely. Diabetic ketoacidosis underlying diabetes mellitus type 2: DKA resolved. A1c 10.1. Continue with current regimen at this time until patient is able to take oral intake. Will transition to Lantus after EGD.
[2020-08-28 18:03] LABS: HBsAG Nonreactive (Nonreactive)
--- NOTE | 2020-09-30 10:34 | CON ---
Date of Consultation: 08/24/2020 Reason For Consultation: GI bleed with the hematemesis, melena and anemia, hemoglobin down to 5.9 wi th shortness of breath. History Of Present Illness: The patient is a 55-year-old white male with history of appendectomy. T he patient presented to hospital with hematemesis and melena with hematemesis 1 time yesterday and se veral times over the past few days. Hemoglobin found to be 6.9, short of breath. On my interview, t he patient states he had symptoms of shortness of breath up to 6 days. He also was noted to take asp irin and ibuprofen. He has no history of peptic ulcer disease or liver disease. His hemoglobin is 5 .8, MCV is low . PT is elevated at 16.1 and INR is 1.4. Also, the patient was noted to carranza ve a possible hyperosmolar coma with glucose of 888 and negative acetone on blood and urine check. Faisal lindsey also has polyuria and polydipsia. He also notes diarrhea possibly secondary to GI bleeding and acu te renal failure on admission with probable dehydration from his complications of his diabetes with p olyuria, polydipsia. Past Medical History: Significant for appendectomy, probably new onset diabetes now. Social History: Single. No children. No tobacco. No alcohol. No travel. He is an ultrasound anjana h. Family History: Mother of dementia, also has Sjogren disease. Father of . Review of Systems: The patient has hematemesis, melena, on aspirin and ibuprofen; polyuria, polydipsia, less diarrhea, p robable dehydration, glucose elevated at acute renal failure with creatinine of 2.13. The patient denies any hematochezia, hemoptysis , hematuria, but he does have polydipsia and polyuria. Denies any depression or anxiety. No muscle aches, joint aches, backaches, chest pain, shortness of breath, seizure, or syncope. Physical Examination: Vital Signs: The patient is 6 feet 2 inches, 222 pounds, BMI of 28.2 kg/sq m. Temperature 97.7 degr ees Fahrenheit, pulse 79, respirations 13, blood pressure 191/54, O2 saturation 98%. General: He is a well-nourished, well-developed male, lying in bed, in no acute distress. HEENT: Normocephalic, atraumatic. Anicteric. Pupils equal, round, and reactive to light. Extraocu lar movements are intact. Oropharynx is clear. Neck: Supple. No masses. Respirations: Clear to auscultation bilaterally. Cardiac: Regular rate and rhythm. Abdomen: Positive bowel sounds. Soft, nontender, nondistended. No hepatosplenomegaly. Extremities: No clubbing, cyanosis, or edema. 2+ pulses. Neuro: Alert and oriented x3. Grossly nonfocal. 5/5 motor sensation, intact to light touch. Laboratory Data: The patient has a white count of 11.5, down from 15.5 yesterday; hemoglobin of 6.7, up from 5.9 yesterday; hematocrit of 21; MCV of 72; platelet count of 164, down from 263 yesterday. Polys of 64%, lymphocytes 27%, monocytes 6%, eosinophils 3%. PT of 16.1, INR of 1.4. Sodium 145, p otassium 4.0, chloride 116, bicarb 24, BUN 13, creatinine 0.8, glucose 240, calcium 7.0, magnesium 3. 1, calcium 7.0. Iron less than 5, iron saturation is too low to calculate less than 1%, TIBC of ____ less than 5, ferritin of 4.1. Total bilirubin 0.4, AST 45, ALT 65, alkaline phosphatase 83, t otal protein 5.8, albumin 2.6, vitamin B12 of 1069. TSH of 1.0, free T4 of 0.59. Acetone negative. COVID-19 testing was negative yesterday. Imaging: Chest x-ray; shallow inspiration, otherwise negative. Impression: 1.Upper GI bleed with anemia with hemoglobin 5.9 with shortness of breath for the past 6 days with h ematemesis, melena. Positive for aspirin and ibuprofen. No history of peptic ulcer disease or liver disease. MCV is low at 72 with hemoglobin of 5.9, PT of 16, INR of 1.4, indicative of ir on deficiency anemia. 2.Possible hyperosmolar coma with glucose 888 and negative acetone with polyuria and polydipsia. 3.Change in bowel habits and diarrhea, probably related to GI bleeding with melena. 4.Acute renal failure, creatinine of 2.13, probably due to dehydration with polydipsia and diarrhea. 5.History of appendectomy and negative COVID-19 test on this admission. Recommendations: 1.Serial H and H, transfuse p.r.n., resuscitation ongoing. 2.Urgent EGD. 3.PPI therapy. 4.N.p.o. 5.IV fluids. 6.Consider colonoscopy in this patient with iron deficiency anemia. VALERIE/SHARADL Voice ID: [id number] Report ID: [id number]
== END 2020-08-25 16:55 | disposition home or self-care (01) | DRG 368 ==
LOC: ER 11:39 → ERHOLD 15:33 → 2ND 08-24 18:00 → ERHOLD 08-24 19:34
PROVIDERS: ADMIT Family Medicine; ATTEND Family Medicine
PROC: 0W3P8ZZ Control Bleeding in Gastrointestinal Tract, Via Natural or Artificial Opening Endoscopic (ICD-10-PCS; 2020-08-24)
PROC: 3E0G8TZ Introduction of Destructive Agent into Upper GI, Via Natural or Artificial Opening Endoscopic (ICD-10-PCS; 2020-08-24)
PROC: 30233N1 Transfusion of Nonautologous Red Blood Cells into Peripheral Vein, Percutaneous Approach (ICD-10-PCS; 2020-08-24)
PROC: 0DB78ZX Excision of Stomach, Pylorus, Via Natural or Artificial Opening Endoscopic, Diagnostic (ICD-10-PCS; principal; 2020-08-24 16:00)
DX: K22.6 Gastro-esophageal laceration-hemorrhage syndrome (principal); E11.10 Type 2 diabetes mellitus with ketoacidosis without coma; N17.9 Acute kidney failure, unspecified; K20.91 Esophagitis, unspecified with bleeding; K29.70 Gastritis, unspecified, without bleeding; K44.9 Diaphragmatic hernia without obstruction or gangrene; D64.9 Anemia, unspecified; R00.0 Tachycardia, unspecified; Z79.4 Long term (current) use of insulin; Z90.49 Acquired absence of other specified parts of digestive tract; Z20.822 Contact with and (suspected) exposure to COVID-19
CPT/HCPCS: 36415; 36430; 71045; 80048; 80053; 80074; 80076; 82010; 82607; 82728; 82947; 83036; 83540; 83735; 83880; 84145; 84439; 84443; 84466; 84484; 85014; 85018; 85025; 85610; 86850; 86900; 86901; 87040; 88305; 88312; 93005; 99285; C9113; J0171; J0696; J1815; J2354; J2704; J7030; J7040; J7050; J7799; P9016; U0003